=== PATIENT | female | born 1970 | race Caucasian/White ===

== ENCOUNTER 2019-04-15 17:05 | Emergency (ER) | payer SELFPAY ==
[~2019-04-15] VITALS: Ht 172.7 cm; Wt 100.0 kg
[2019-04-15 17:11] VITALS: Ht 172.7 cm; Wt 100.0 kg
[2019-04-15] MEDS ORDERED: morphine 4 MG/ML VIAL IM STA (19:00)
[2019-04-15] MEDS ORDERED: ONDANSETRON (ODT) 4 MG TAB ODT STA (19:00)
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
[2019-04-15] MEDS ORDERED: CYCL10TA7 PO (21:06)
[2019-04-15] MEDS ORDERED: NAPR-985 PO (21:06)
[2019-04-15 21:30] VITALS: BP 171/108; PULSE 58; RESP 17
== END 2019-04-15 21:30 | disposition home or self-care (01) ==
LOC: FTE 17:05
DX: M54.2 Cervicalgia (principal); M79.631 Pain in right forearm; M79.661 Pain in right lower leg; M79.671 Pain in right foot
CPT/HCPCS: 29125; 70450; 72050; 73090; 73130; 73590; 73630; 81025; 96372; 99285; J2270